=== PATIENT | female | born 1990 | race Caucasian/White ===

== ENCOUNTER → 2017-04-17 09:37 | Outpatient (CLI) | payer MEDICAID | END | disposition home or self-care (01) | LOC: D.MRI 04-11 14:00 | DX: M22.42 Chondromalacia patellae, left knee (principal) ==

== ENCOUNTER → 2018-10-30 07:19 | Outpatient (CLI) | payer MEDICAID | END | disposition home or self-care (01) | LOC: D.MRI 07:19 | PROVIDERS: ATTEND Nurse Practitioner Family | DX: M22.42 Chondromalacia patellae, left knee (principal) ==

== ENCOUNTER 2018-11-16 05:46 | Outpatient (CLI) | payer OTHER, MEDICAID ==
[~2018-11-16] VITALS: Ht 160 cm; Wt 83.9 kg
[~2018-11-16 05:46] MED LIST: ALBUTEROL SULF8.5 GM; AMBIEN5 MG; TOPAMAX100 MG PO
[2018-11-16 06:52] LABS: HEMATOCRIT 41.6 % (36.0-48.0); HEMOGLOBIN 13.6 g/dL (12-16); MCH 28.9 pg (26.0-34.0); MCHC 32.7 g/dL (31.0-37.0); MCV 88.5 fL (80.0-100.0); MEAN PLATELET VOLUME 10.4 fL (7.4-10.4); RBC 4.7 10x6/uL (4.00-5.40); RDW 13.4 % (11.5-14.5); WBC 6.1 10x3/uL (4.8-10.8)
[2018-11-16] MEDS ORDERED: SYMBICORT 16010.2 GM INH (07:00)
--- NOTE | 2018-11-16 07:09 | NUR ---
0708 SENIOR DATA MINING ANALYST, NEHAL GUZMAN, NOTIFIED OF NEED FOR [facility] CONSULT ON PT WHO HAS MADE AN ATTEMPT A YEAR AGO TO COMMIT SUICIDE. PT STATES SHE HAS BEEN RECEIVING THERAPY SINCE.
[2018-11-16 07:43] VITALS: BP 98/58; Ht 160 cm; Wt 83.9 kg
--- NOTE | 2018-11-16 09:09 | NUR ---
0830-DR PERRY SAYS NO INSURANCE APPROVAL AND CANCEL SURGERY AND DISCHARGE PATIENT. 0840-D/C IV, DRESSED, AND DISCHARGE INSTRUCTIONS REVIEWED. 0845-D/C HOME AMBULATORY.
== END 2018-11-16 08:45 | disposition home or self-care (01) ==
LOC: D.OPS 05:46 → EDSTATUS 07:00 → D.PAN 07:00 → D.OPS 07:00
PROVIDERS: Anesthesiology; ATTEND Orthopaedic Surgery
DX: M25.569 Pain in unspecified knee (principal)

== ENCOUNTER 2018-11-23 11:37 | Day surgery (SDC) | payer OTHER, MEDICAID ==
[~2018-11-23] VITALS: Ht 160 cm; Wt 83.9 kg
[~2018-11-23 11:37] MED LIST changes: +SYMBICORT 16010.2 GM INH
[2018-11-23 11:53] LABS: HEMATOCRIT 37.6 % (36.0-48.0); HEMOGLOBIN 12.7 g/dL (12-16); MCH 29.7 pg (26.0-34.0); MCHC 33.8 g/dL (31.0-37.0); MCV 87.9 fL (80.0-100.0); MEAN PLATELET VOLUME 9.6 fL (7.4-10.4); RBC 4.28 10x6/uL (4.00-5.40); RDW 13.4 % (11.5-14.5); WBC 6.8 10x3/uL (4.8-10.8)
--- NOTE | 2018-11-23 12:24 | NUR ---
CALLED TELECOM ASSISTANT FOR MENTAL HEALTH EVAL.
[2018-11-23 12:25] VITALS: BP 99/52; Ht 160 cm; Wt 83.9 kg
--- NOTE | 2018-11-23 14:50 | NUR ---
DR CHESTER NOTIFIED AND REVIEWED PT'S BEHAVIOR AND ASSESSMENT RESULTS. PT IS A LOW RISK PER DR CHESTER. DR CHESTER STATED TO GIVE RESOURCES TO PT AT TIME OF DISCHARGE. NO FURTHER ORDERS AT THIS TIME. RESOURCES REVIEWED WITH PT AND SHE VERBALIZED UNDERSTANDING. PATIENT ABLE TO VOICE POSITIVE REASONS FOR LIVING AND VEHEMENTLY DENIES ANY THOUGHTS OF SUICIDE.
[2018-11-23] MEDS ORDERED: PERCOCET 5-3251 TAB PO (16:43)
[2018-11-23] MEDS ORDERED: TORADOL10 MG PO (16:44)
--- NOTE | 2018-11-27 10:40 | OP ---
PATIENT NAME: HANANE HILL MEDICAL RECORD: [id number] :89 LOCATION:[facility] ADMISSION DATE: SURGEON: KJ PERRY DO DATE OF OPERATION: 11/23/2018 PROCEDURE PERFORMED: Left knee arthroscopy with lateral release. 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 INDICATIONS: Ms. Hill is a 28-year-old female who has had lateral patellar tilt and grinding of the patella for quite some time. She has been through several rounds of physical therapy, had an MRI that showed a lateral patellar tilt with a normal TT-TG. She never had any dislocations. She is aware that we can do something and the lateral release is what I told her we can try, but she had to do therapy after and then get her patella to track right. She is aware that we are the risk of infection, bleeding, damage to nerves and vessels, need for further surgery, swelling, continued pain, blood clots, and even and signed the consent. SURGEON: Kj Perry DO DESCRIPTION OF PROCEDURE: The patient was taken to the operative suite, laid in the supine position, given general anesthetic. LMA was placed. Two grams Ancef was given. The left lower extremity was prepped and draped in sterile fashion. Timeout was performed and everybody was in agreement as to the correct site, side, patient, and procedure. The incision began over the anterolateral portal of the knee. The trocar was then entered in the knee. The camera was then entered in and the suprapatellar pouch was inspected and loose body seen in the lateral gutter and medial gutter. The medial compartment was then entered and the 18-gauge spinal needle was used to establish a medial portal with an 11-blade scalpel as well. Trocar entered the knee and the probe was used to probe the meniscus in the medial side. No loose bodies and no tears seen there. The ACL was in good repair and the knee was then figure 4'd and the lateral meniscus was probed. There was no tear seen in the lateral meniscus either. We then switched the camera from the lateral to the medial portal and the burner was brought in through the lateral portal. A lateral release was then done of the lateral retinaculum moving and had nice release on it and moved the patella more medial. The lateral portal was then entered again with the scope and the patella seemed to track very well and the trochlea bent at 30 degrees. The water was turned off and the suction was turned on with removing the excess fluid from the knee. The scope portals then closed with 4-0 Monocryl in inverted interrupted fashion. Steri-Strips, Adaptic, 4 x 4's, ABD, Webril, Leonardo wrap and his EMIYL stocking was placed. The patient was then awakened and taken to recovery in stable condition. BLOOD LOSS: Minimal. COMPLICATIONS: None. OPERATIVE REPORT [id number] HANANE HILL TRANSINT:[id number] Voice Confirmation ID: [id number] DOCUMENT ID: [id number] KJ PERRY DO at 1040 CC: [id number] DICTATION DATE: 11/23/18 1647 FORESTRY AIDE: 11/23/18 [facility] 11/23/18 [facility] [address] [place] [address]
== END 2018-11-23 19:00 | disposition home or self-care (01) ==
LOC: D.OPS 11:37 → D.PAN 16:30 → D.OPS 19:00
PROVIDERS: Anesthesiology; ATTEND Orthopaedic Surgery
DX: M70.862 Other soft tissue disorders related to use, overuse and pressure, left lower leg (principal); Y93.9 Activity, unspecified

== ENCOUNTER → 2019-10-21 13:15 | Outpatient (CLI) | payer OTHER ==
[2018-11-23 12:25] VITALS: BMI 32.8
[~2019-10-21 13:15] MED LIST changes: +PERCOCET 5-3251 TAB PO; +TORADOL10 MG PO
== END | disposition home or self-care (01) ==
LOC: D.RAD 13:15
PROVIDERS: ATTEND Nurse Practitioner Family
DX: R05 Cough (principal)